=== PATIENT | female | born 1965 | race Caucasian/White ===

== ENCOUNTER 2021-11-13 06:37 | Day surgery (SDC) | payer MEDICARE ==
[~2021-11-13] VITALS: Ht 162.6 cm; Wt 82.0 kg
[~2021-11-13 06:37] MED LIST: ALBU90OI61 INH; ASPI81CH PO; ATOR40TA PO; CYCL10 PO; DULO60 PO; FURO20 PO; HYDACE5 PO; HYDR1TAB94 PO; LEVSOD100 PO; LEVSOD125; Norvasc2.5 MG PO; PANT40 PO; PRAM.5; SULTRIDS PO; SYMBICORT 160-4.6 GM INH; TIOT18 INH; TOPI25 PO
[2021-11-13] MEDS ORDERED: NITR.6SL SL (06:58)
[2021-11-13] MEDS ORDERED: LISI20 PO (06:59)
--- NOTE | 2021-11-13 09:27 | NUR ---
PT AMBULATES TO RESTROOM AND BACK WITHOUT DIFF. PT TOLERATES WELL. R RADIAL TR BAND IN PLCAE. NO BLEEDING OR HEMATOMA NOTED. VSS. NADN. AIR RELEASED FROM TR BAND. NO BLEEDING NOTED. CALL LIGHT WITHIN REACH. FAMILY AT BEDSIDE
--- NOTE | 2021-11-13 09:53 | NUR ---
TR BAND FULLY DEFLATED. NO BLEEDING OR HEMATOMA NOTED. VSS. NADN. PT VERBALIZES UNDERSTANDING WRITTEN AND VERBAL INSTRUCTIONS. DENIES QUESTIONS.
--- NOTE | 2021-11-13 10:17 | NUR ---
PT IV DC'D. CATH INTACT. PRESSURE DSG APPLIED. TR BAND REMOVED. DOT DRESSING/SLING/SPLINT APPLIED. TOLERATES WELL. PT DC TO HOME VIA WC BY FAMILY.
== END 2021-11-13 10:25 | disposition home or self-care (01) ==
LOC: MHTC 06:37
DX: I20.8 Other forms of angina pectoris (principal); R94.39 Abnormal result of other cardiovascular function study; I11.0 Hypertensive heart disease with heart failure; E03.9 Hypothyroidism, unspecified; F17.210 Nicotine dependence, cigarettes, uncomplicated; K21.9 Gastro-esophageal reflux disease without esophagitis; D64.9 Anemia, unspecified; Z79.82 Long term (current) use of aspirin; Z88.8 Allergy status to other drugs, medicaments and biological substances; Z91.040 Latex allergy status; E78.00 Pure hypercholesterolemia, unspecified
CPT/HCPCS: 76937; 93454; 99152; A9270; C1769; C1887; C1894; J1644; J2250; J3010; J7030; J7050; Q9967

== ENCOUNTER → 2023-10-20 | Outpatient (CLI) | payer OTHER ==
[~2023-10-20] MED LIST changes: +LISI20 PO; +NITR.6SL SL
== END ==
LOC: LAB 08:11 → LAB SHORT 08:11
DX: L98.9 Disorder of the skin and subcutaneous tissue, unspecified (principal)
CPT/HCPCS: 88305